=== PATIENT | female | born 1950 | race Caucasian/White ===

== ENCOUNTER → 2018-07-23 | Day surgery (SDC) | payer OTHER ==
--- NOTE | 2018-07-23 18:31 | OP ---
DATE OF OPERATION: 07/23/2018 PREOPERATIVE DIAGNOSIS: Right breast mass, 12 o'clock, retroareolar. POSTOPERATIVE DIAGNOSIS: Right breast mass, 12 o'clock, retroareolar. PROCEDURE: Right ultrasound-guided core biopsy with clip placement. ANESTHESIA: Local. ATTENDING SURGEON: Juan Diego Obregon MD ESTIMATED BLOOD LOSS: Minimal. COMPLICATIONS: None. PROCEDURE: Patient was made aware of the risks and benefits of the procedure and consented. She was then placed in a supine position, and under sterile conditions with 1% lidocaine for local anesthesia, a small ellen was made in the skin. Using a 13-gauge suction biopsy device with a lateral approach under ultrasound guidance, multiple cores were obtained and submitted to Pathology. Likewise, under ultrasound guidance, a U-shape clip was placed into the biopsy region. Well tolerated by the patient. Steri-Strips and a sterile bandage were applied. We will contact her with the results. JUAN DIEGO OBREGON M.D. [id number]
--- NOTE | 2018-07-24 16:45 | PATH ---
Surgical Pathology Report Patient Name: DALI ARIAS [facility]. Rec. #: [id number] /Age/Gender: 1950 (Age: 67) / F Account: [id number] Location: [facility] Taken: 07/23/2018 Received: 07/23/2018 Reported: 07/24/2018 Physicians: Juan Diego Obregon M.D. Specimen(s) Received RIGHT BREAST CORE BIOPSY Clinical History Nonpalpable lesion Mammographic findings/ultrasound findings: Highly suspicious/malignant Final Diagnosis BREAST, RIGHT, 12:00, RETRO, CORE BIOPSY: INVASIVE DUCTAL CARCINOMA, MODERATELY DIFFERENTIATED, MEASURING AT LEAST 1 CM IN THIS MATERIAL. Comment: Immunohistochemical stains performed and interpreted at [facility] show the tumor is positive for E-Cadherin, supportive of ductal phenotype. Results of Estrogen Receptor (ER) and Progesterone Receptor (VA) studies performed on block "1" at [facility] are as follows: ER (clone [id number] mouse monoclonal antibody by [employer]): >95% nuclear staining with strong intensity (Positive). VA (clone16 mouse monoclonal antibody by Leica): 0% nuclear staining (Negative). HER2 (IHC) AND KI67 studies are pending, and will be reported separately. Positive and negative controls (internal if applicable) show appropriate results. Formalin fixation and cold ischemic times are within current ASCO/CAP recommendations for ER, VA and Her2 testing. Electronically Signed Tracy Mott M.D. Addendum Reported: 07/25/2018 Addendum Diagnosis Results of Her2 (IHC) & Ki-67 studies performed at [place], [place] ([id number]) are as follows: Her2 IHC (EP3 from [employer], formerly known as [id number], using Estes Polymer Refine detection kit): 0 (Negative). Ki-67: ~25% (Intermediate proliferative index). Positive and negative controls (internal if applicable) show appropriate results. Tracy Mott M.D. Gross Description Received in formalin labeled "right 12:00 retro," are 6 bennett-yellow, cylindrical portions of fibroadipose tissue ranging from 1.0-1.6 cm in length and averaging 0.1 cm in diameter. The specimens are submitted in toto in one cassette. Time to formalin fixation: Less than one minute Total formalin fixation time: Approximately 6 hours. 07/23/201807/23/2018
== END | disposition home or self-care (01) ==
LOC: FRADUS-SUR 11:23
PROVIDERS: ATTEND Surgery Surgical Oncology
PROC: 0HBT3ZX Excision of Right Breast, Percutaneous Approach, Diagnostic (ICD-10-PCS; principal; 2018-07-23)
DX: C50.811 Malignant neoplasm of overlapping sites of right female breast (principal); Z17.0 Estrogen receptor positive status [ER+]; N63.10 Unspecified lump in the right breast, unspecified quadrant
CPT/HCPCS: 19083; 87899; 88305-TC; 88342-TC; A4648

== ENCOUNTER 2018-08-13 11:32 | Inpatient (IN) | payer OTHER ==
[2018-07-29 11:36] VITALS: BMI 25.7
--- NOTE | 2018-08-01 11:37 | HP ---
Admitting History and Physical - Primary Care Physician PCP: Juan Diego Obregon - Admission Chief Complaint: right breast cancer History of Present Illness: Patient is a 67 yo female with h/o left MRM at 36 yrs old, who was noted to have a right breast mass on self exam. The mammo and US confirmed this subareolar mass at 12 as well as an additional second nodule at 10 9-10 cm FN. Patient underwent a right 12 o'clock core bx on 07/23/2018 which was c/w invasive ductal carcinoma ER pos, AL negative. Patient has opted to have a mastectomy, snbx, poss andx with lympho without reconstruction. History Source: Patient - Past Medical History Cardiovascular: Yes: HTN Heme/Onc: Yes: Cancer (breast cancer at 36 yo) ENT: Yes: Other (allergies to foods banana and avacado) - Past Surgical History Past Surgical History: Yes: (x3), Hysterectomy (SHREE BSO benign at age 37), Mastectomy (left MRM at 36) - Advance Directives Advance Directives: Yes: Health Care Proxy - Smoking History Smoking history: Former smoker Have you smoked in the past 12 months: No If you are a former smoker, when did you quit?: 20 yrs ago - Alcohol/Substance Use Hx Alcohol Use: Yes (7 per week) Home Medications - Allergies Allergies/Adverse Reactions: Allergies Allergy/AdvReac Type Severity Reaction Status Date / Time banana Allergy Verified 07/24/18 15:35 Iodine and Iodide Containing Allergy Verified 07/24/18 15:35 Produc Latex, Natural Rubber Allergy Verified 07/24/18 15:35 adhesive tape Allergy Uncoded 07/29/18 11:25 - Home Medications Home Medications: Ambulatory Orders Hydrochlorothiazide [Hctz -] 50 mg PO DAILY 07/29/18 Loratadine [Claritin] 10 mg PO HS 07/29/18 Triamcinolone Acetonide [Nasacort] 10.8 ml NS DAILY 07/29/18 Family Disease History - Family Disease History Family Disease History: CA: Daughter (leukemia at age 3 currently 36) Review of Systems - Review of Systems Constitutional: reports: No Symptoms Physical Examination Constitutional: Yes: Well Nourished, Calm Cardiovascular: Yes: Regular Rate and Rhythm Respiratory: Yes: CTA Bilaterally Breast(s): Yes: Other (Breasts are symmetrical without skin changes noted. Right palpable subareolar mass noted approx 2 cm with slight nipple retraction. No other suspicious masses or adenopathy was noted bilaterally.) Problem List - Problems (1) Breast cancer, right Code(s): C50.911 - MALIGNANT NEOPLASM OF UNSP SITE OF RIGHT FEMALE BREAST Qualifiers: Breast location: central portion of breast Estrogen receptor status: positive Patient sex: female Qualified Code(s): C50.111 - Malignant neoplasm of central portion of right female breast; Z17.0 - Estrogen receptor positive status [ER+] (2) History of left breast cancer Code(s): Z85.3 - PERSONAL HISTORY OF MALIGNANT NEOPLASM OF BREAST Assessment/Plan Plan: Right mastectomy, sentinel node bx, possible andx with lymphoscintogram
[2018-08-13] MEDS ORDERED: ISOSULFAN BLUE 10 MG/ML VIAL SQ ONE (12:46)
[2018-08-13] MEDS ORDERED: BUPIVACAINE HCL/PF 2.5 MG/ML - 30 ML VIAL IJ ONE (12:46)
[2018-08-13] MEDS ORDERED: LIDOCAINE HCL 1%, 10 MG/ML (20ML VIAL) ONE (12:47)
[2018-08-13] MEDS ORDERED: LIDOCAINE HCL/PF 2% SDV 5ML VIAL ONE (13:41)
[2018-08-13] MEDS ORDERED: DEXAMETHASONE SOD PHOSPHATE 4 MG/1 ML VIAL ONE (13:41)
[2018-08-13] MEDS ORDERED: ONDANSETRON 4 MG/2 ML VIAL ONE (13:41)
[2018-08-13] MEDS ORDERED: ceFAZolin SODIUM 1 GM VIAL ONE (13:48)
[2018-08-13] MEDS ORDERED: PROPOFOL 20 ML ONE (14:00)
[2018-08-13] MEDS ORDERED: PHENYLEPHRINE HCL 10 MG/1 ML SINGLE DOSE VIAL ONE (14:01)
[2018-08-13] MEDS ORDERED: ONDANSETRON 4 MG/2 ML VIAL IVPUSH PRN ×2 (14:53→16:26)
[2018-08-13] MEDS ORDERED: traMADol HCL 50 MG TABLET PO PRN (14:54)
[2018-08-13] MEDS ORDERED: oxyCODONE HCL 5 MG TABLET PO PRN (14:55)
[2018-08-13] MEDS ORDERED: LACTATED RINGERS SOLUTION 1,000 ML IV SCH (15:00)
[2018-08-13] MEDS ORDERED: ZOLPIDEM TARTRATE 5 MG TABLET PO PRN (16:26)
[2018-08-13] MEDS ORDERED: ACETAMINOPHEN 325 MG TABLET (FP) PO PRN (16:26)
[2018-08-13] MEDS ORDERED: PROMETHAZINE HCL 25 MG/1 ML VIAL ONE (16:50)
[2018-08-13] MEDS ORDERED: traMADol HCL 50 MG TABLET ONE (16:59)
[2018-08-13] MEDS ORDERED: ACETAMINOPHEN 325 MG TABLET (FP) ONE (16:59)
[2018-08-13] MEDS: ACETAMINOPHEN 325 MG TABLET (FP) PO SCH ×3 (18:00→23:50)
--- NOTE | 2018-08-13 21:18 | OP ---
DATE OF OPERATION: 08/13/2018 PREOPERATIVE DIAGNOSES: Right breast cancer, redundant left chest wall tissue status post mastectomy, and BRCA2 positive. POSTOPERATIVE DIAGNOSES: Right breast cancer, redundant left chest wall tissue status post mastectomy, and BRCA2 positive. PROCEDURE: Right total mastectomy with sentinel node biopsy, no reconstruction, and left chest wall excision of redundant tissue. ANESTHESIA: General, intubated. ATTENDING SURGEON: Sharonda Obregon MD ASSISTANT MEN'S SOCCER COACH: KAILASH Jacobs ESTIMATED BLOOD LOSS: 150 mL. COMPLICATIONS: None. PROCEDURE: Patient was made aware of the risks and benefits of the procedure and consented. Preoperatively she went to Nuclear Medicine, where a nuclear radioactive tracer was injected into the right breast. She was then placed in a supine position on the operating room table, and after general anesthesia was induced, the patient was intubated. Then 3 mL of 1% isosulfan blue were locally infiltrated into the right breast subareolar tissue. The operative site was prepped and draped in the usual sterile fashion. A curvilinear incision was made in the right axilla using blunt and sharp dissection. Tissues were dissected down to the axillary fat, where a cluster of 2 blue and hot lymph nodes were identified. These were surgically excised and submitted to Pathology. Interrogation of the rest of the axilla with the NeoProbe, we found no hot spots and, by palpation, no suspicious lymph nodes. The tissue was then submitted for frozen section, which was reported as no evidence of metastasis. The right breast was then approached. An elliptical incision was made around the nipple and bulk of the skin. Using electrocautery, skin flaps were made superior to the clavicle, medial to the sternum, lateral to the latissimus dorsi, and inferior to the inframammary fold. Using electrocautery, the breast tissue was taken off the pectoralis muscle, extending to the latissimus dorsi. This was then submitted with a short suture superior, long suture lateral. Specimen radiograph confirmed the presence of the indexed lesion. The wound was copiously irrigated with normal saline, hemostasis maintained by electrocautery. A 15-Maori drain was placed through inferior stab wound and sutured to the skin with 3-0 nylon. Skin was then closed with deep interrupted 2-0 and 3-0 Vicryl followed by running subcuticular 4-0 Monocryl. Using separate instruments, gowns and gloves, the left side was then approached. An elliptical incision was made over the prior incision using electrocautery. Thick skin flaps were made to encompass all of the breast tissue. This was then taken off the pectoralis muscle laterally to the anterior axillary line. This was then submitted with a short suture superior, long suture lateral. The wound was copiously irrigated with normal saline, hemostasis maintained with electrocautery. The wound was then closed with 2-0 and 3-0 Vicryl interrupted sutures followed by running subcuticular 4-0 Monocryl. Through an inferior stab wound, a 15-Maori drain was also placed into the cavity and sutured to the skin with 3-0 nylon. Dermabond was used on both incisions. The wounds were then dressed with sterile dressings as well as a compression bra and the patient, having tolerated the procedure well, was transferred to the recovery room in excellent condition. SHARONDA OBREGON M.D. [id number]
[2018-08-13] MEDS: CEFAZOLIN 1 GM/D5W 1 GM/50 ML BAG IVPB SCH (21:25)
[2018-08-13] MEDS ORDERED: LORATADINE 10 MG TABLET PO SCH (22:00)
[2018-08-14] MEDS: CEFAZOLIN 1 GM/D5W 1 GM/50 ML BAG IVPB SCH ×3 (03:21→15:57)
[2018-08-14] MEDS: ACETAMINOPHEN 325 MG TABLET (FP) PO SCH ×4 (03:50→15:56)
[2018-08-14] MEDS: DEXTROSE 5%-0.45% SALINE 1,000 ML IV SCH ×2 (08:05→18:01)
[2018-08-14 08:18] LABS: HEMATOCRIT 32.3 % (32.4-45.2); HEMOGLOBIN 10.8 GM/dl (10.7-15.3); MCH 30.7 pg (25.7-33.7); MCHC 33.3 g/dl (32.0-36.0); MEAN CELL VOLUME 92.2 fl (80-96); MEAN PLT VOLUME 10.8 fl (7.5-11.1); PLATELET COUNT 162 K/MM3 (134-434); RDW 12.6 % (11.6-15.6); WHITE BLOOD COUNT 8.4 K/mm3 (4.0-10.8)
[2018-08-14] MEDS ORDERED: PT OWN MED DRAWER 7, Y5N ONE (09:06)
--- NOTE | 2018-08-14 09:20 | PN ---
Progress Note, Physician Chief Complaint: POD#1 S/P right mastectomy with snbx and revision of left chest incision History of Present Illness: Patient was seen today at the bedside and reports good pain control with tylenol. Other then some right inner upper arm numbness, patient is comfortable. - Current Medication List Current Medications: Active Medications Acetaminophen (Tylenol -) 650 mg PO Q4H [facility] Last Admin: 08/14/18 08:33 Dose: Not Given Acetaminophen (Tylenol -) 650 mg PO Q4H PRN PRN Reason: FEVER Fluticasone Propionate (Flonase -) 1 spray NS DAILY [facility] Heparin Sodium (Porcine) (Heparin -) 5,000 unit SQ BID [facility] Hydrochlorothiazide (Hctz -) 50 mg PO DAILY [facility] Cefazolin Sodium (Ancef 1 Gm Premixed Ivpb -) 1 gm in 50 mls @ 100 mls/hr IVPB Q6H-IV [facility] Stop: 08/20/18 20:59 Last Admin: 08/14/18 08:32 Dose: 100 mls/hr Dextrose/Sodium Chloride (D5-1/2ns -) 1,000 mls @ 100 mls/hr IV ASDIR [facility] Last Admin: 08/14/18 08:05 Dose: Not Given Loratadine (Claritin -) 10 mg PO HS [facility] Last Admin: 08/13/18 21:25 Dose: 10 mg Ondansetron HCl (Zofran Injection) 4 mg IVPUSH Q6H PRN PRN Reason: NAUSEA AND/OR VOMITING Last Admin: 08/13/18 21:28 Dose: 4 mg Oxycodone HCl (Roxicodone -) 5 mg PO Q4H PRN PRN Reason: PAIN LEVEL 6-10 Tramadol HCl (Ultram -) 50 mg PO Q4H PRN PRN Reason: PAIN LEVEL 4 - 6 Last Admin: 08/13/18 18:00 Dose: 50 mg Zolpidem Tartrate (Ambien -) 5 mg PO HS PRN PRN Reason: Insomnia - Objective Vital Signs: Vital Signs Temperature 98.3 F 08/14/18 03:47 Pulse Rate 89 08/14/18 03:47 Respiratory Rate 18 08/14/18 03:47 Blood Pressure 113/55 L 08/14/18 03:47 O2 Sat by Pulse Oximetry (%) 94 L 08/14/18 08:21 Constitutional: Yes: Well Nourished, Calm Breast(s): Yes: Other (Right more than left ecchymosis noted on the flaps. Incision without discharge noted or erythema. Some leakage noted around the right WIL although bulb maintains suction. Serosanginous discharge noted bilaterally) Labs: CBC, BMP 08/14/18 07:52 Problem List - Problems (1) Breast cancer, right Code(s): C50.911 - MALIGNANT NEOPLASM OF UNSP SITE OF RIGHT FEMALE BREAST Qualifiers: Breast location: central portion of breast Estrogen receptor status: positive Patient sex: female Qualified Code(s): C50.111 - Malignant neoplasm of central portion of right female breast; Z17.0 - Estrogen receptor positive status [ER+] (2) History of left breast cancer Code(s): Z85.3 - PERSONAL HISTORY OF MALIGNANT NEOPLASM OF BREAST Assessment/Plan A: S/P Right mastectomy with snbx and revision of left chest incision P: Discharge today and followup in the office next week Continue po axbx and pain meds as needed Record WIL output
[2018-08-14] MEDS ORDERED: FLUTICASONE PROP 0.05% 16 GM NASAL SPRAY NS SCH (10:00)
[2018-08-14] MEDS ORDERED: HEPARIN NA (PORCINE) 5,000 UNITS/ML 1ML VIAL SQ SCH (10:00)
[2018-08-14] MEDS ORDERED: HYDROCHLOROTHIAZIDE 50 MG TABLET PO SCH (10:00)
--- NOTE | 2018-08-14 13:27 | PN ---
Progress Note (short form) - Note Progress Note: ANESTHESIOLOGY POST-OP CHECK 67F s/p right mastectomy under general anesthesia , POD #1. no acute complaints. Pain 2/10 and tolerable. Ambulating, tolerating PO, denies N/V. Vital Signs Temperature 98.3 F 08/14/18 03:47 Pulse Rate 89 08/14/18 03:47 Respiratory Rate 18 08/14/18 03:47 Blood Pressure 113/55 L 08/14/18 03:47 O2 Sat by Pulse Oximetry (%) 94 L 08/14/18 08:21 Active Medications Acetaminophen (Tylenol -) 650 mg PO Q4H [facility] Last Admin: 08/14/18 11:54 Dose: 650 mg Acetaminophen (Tylenol -) 650 mg PO Q4H PRN PRN Reason: FEVER Fluticasone Propionate (Flonase -) 1 spray NS DAILY [facility] Last Admin: 08/14/18 09:18 Dose: 1 spray Heparin Sodium (Porcine) (Heparin -) 5,000 unit SQ BID [facility] Last Admin: 08/14/18 09:23 Dose: 5,000 unit Hydrochlorothiazide (Hctz -) 50 mg PO DAILY [facility] Last Admin: 08/14/18 09:24 Dose: Not Given Cefazolin Sodium (Ancef 1 Gm Premixed Ivpb -) 1 gm in 50 mls @ 100 mls/hr IVPB Q6H-IV [facility] Stop: 08/20/18 20:59 Last Admin: 08/14/18 08:32 Dose: 100 mls/hr Dextrose/Sodium Chloride (D5-1/2ns -) 1,000 mls @ 100 mls/hr IV ASDIR [facility] Last Admin: 08/14/18 08:05 Dose: Not Given Loratadine (Claritin -) 10 mg PO HS [facility] Last Admin: 08/13/18 21:25 Dose: 10 mg Ondansetron HCl (Zofran Injection) 4 mg IVPUSH Q6H PRN PRN Reason: NAUSEA AND/OR VOMITING Last Admin: 08/13/18 21:28 Dose: 4 mg Oxycodone HCl (Roxicodone -) 5 mg PO Q4H PRN PRN Reason: PAIN LEVEL 6-10 Tramadol HCl (Ultram -) 50 mg PO Q4H PRN PRN Reason: PAIN LEVEL 4 - 6 Last Admin: 08/13/18 18:00 Dose: 50 mg Zolpidem Tartrate (Ambien -) 5 mg PO HS PRN PRN Reason: Insomnia Gen; awake, alert, NAD No apparent anesthesia complications, pain well controlled. Continue management as per primary team.
[2018-08-14 14:14] VITALS: BP 137/68; PULSE 94; TEMP 98.4
--- NOTE | 2018-08-19 10:30 | PATH ---
Surgical Pathology Report Patient Name: DALI ARIAS Med. Rec. #: [id number] /Age/Gender: 1950 (Age: 67) / F Account: [id number] Location: [facility] Taken: 08/13/2018 Received: 08/13/2018 Reported: 08/19/2018 Physicians: Juan Diego Obregon M.D. Specimen(s) Received A: RIGHT AXILLARY SENTINEL NODES (FS) B: RIGHT BREAST MASTECTOMY C: LEFT BREAST TISSUE Clinical History Invasive Ca, tumor/biopsy site at 12:00 Intraoperative Consult Diagnosis Right axillary sentinel nodes, frozen section: Two negative lymph nodes. Ray Cooper M.D., 08/13/2018 Final Diagnosis A. LYMPH NODES, RIGHT AXILLARY SENTINEL, EXCISION (FS): TWO LYMPH NODES, NEGATIVE FOR METASTATIC CARCINOMA (0/2). B. BREAST, RIGHT, TOTAL MASTECTOMY: INVASIVE DUCTAL CARCINOMA, MODERATELY DIFFERENTIATED WITH MICROPAPILLARY FEATURES (TUBULE SCORE: 3/3, NUCLEAR GRADE: 2/3, MITOTIC SCORE: 2/3, TOTAL SCORE: 7/9; STEVEN GRADE 2), MEASURING 1.9 CM IN GREATEST DIMENSION, MICROSCOPICALLY. (SEE NOTE) FOCAL DUCTAL CARCINOMA IN SITU (DCIS), SOLID TYPE, INTERMEDIATE NUCLEAR GRADE, PRESENT ADMIXED WITH INVASIVE CARCINOMA. SURGICAL MARGINS ARE UNINVOLVED BY CARCINOMA; CARCINOMA IS AT 4.5 CM FROM THE DEEP MARGIN (GROSS MEASUREMENT). NIPPLE AND SKIN ARE UNINVOLVED BY CARCINOMA. NO LYMPHOVASCULAR INVASION IS IDENTIFIED. (SEE NOTE). SMALL FIBROADENOMA. SKIN SHOWING SEBORRHEIC KERATOSIS. PRIOR BIOPSY SITE CHANGES ARE PRESENT. PATHOLOGIC STAGE (pTNM): pT1c pN0. SEE ALSO INVASIVE CARCINOMA CASE SUMMARY BELOW. Note: Immunostains performed on block B7 at [place], [place] ([id number]) show the following results: VENUS shows characteristic linear VENUS reactivity at the outer surface of the subset of tumor cells showing micropapillary architecture, which supports micropapillary component. Endothelial immunohistochemical markers (CD31 & Factor VIII) were used in the evaluation of this case and demonstrate no evidence of lymphovascular invasion. C. BREAST, TISSUE, LEFT, EXCISION: BENIGN BREAST TISSUE AND SCANT SKELETAL MUSCLE. SKIN, WITH NO PATHOLOGIC FINDINGS. Comments Breast Invasive Carcinoma: Surgical Pathology Case Summary (Based on AJCC TNM 8 th edition) Procedure _X_ Total mastectomy Specimen Laterality _X_ Right Tumor Size _X_ Greatest dimension of largest invasive focus (millimeters): 19 mm Histologic Type _X_ Invasive carcinoma with micropapillary features Histologic Grade (Brock Histologic Score) Glandular (Acinar)/Tubular Differentiation _X_ Score 3 (<10% of tumor area forming glandular/tubular structures) Nuclear Pleomorphism _X_ Score 2 Mitotic Rate _X_ Score 2 Overall Grade _X_ Grade 2 (scores of 6 or 7) Tumor Focality _X_ Single focus of invasive carcinoma Ductal Carcinoma In Situ (DCIS) _X_ DCIS is present in specimen _X_ Negative for extensive intraductal component (EIC) Margins Invasive Carcinoma Margins _X_ Uninvolved by invasive carcinoma Distance from closest margin (millimeters): 45 mm (gross measurement) DCIS Margins _X_ Uninvolved by DCIS Distance from closest margin (millimeters): 45 mm from deep margin (focal DCIS is present admixed with invasive carcinoma, which is grossly at 45 mm from the deep margin) Regional Lymph Nodes Number of Lymph Nodes with Macrometastases (>2 mm): 0 Number of Lymph Nodes with Micrometastases (>0.2 mm to 2 mm and/or >200 cells): 0 Number of Lymph Nodes with Isolated Tumor Cells (=0.2 mm and =200 cells): 0 Number of Lymph Nodes Examined: 2 Number of [place] Nodes Examined : 2 Treatment Effect _X__ No known presurgical therapy Lymphovascular Invasion _X_ Not identified Pathologic Stage Classification (pTNM, AJCC 8th Edition) Primary Tumor (Invasive Carcinoma) (pT) _X_ pT1c: Tumor >10 mm but =20 mm in greatest dimension Regional Lymph Nodes (pN) Category (pN) _X_ pN0: No regional lymph node metastasis identified or ITCs only Biomarker Studies Results of ER and MT studies performed on prior biopsy ([id number]) at [facility] are as follows: ER (clone [id number] mouse monoclonal antibody by [employer]) : >95 % nuclear staining with strong intensity (Positive). MT (clone16 mouse monoclonal antibody by [employer]): 0 % nuclear staining (Negative). Results of Her2 (IHC) & Ki-67 studies performed on prior biopsy ([id number]) at [place], [place] [id number]) are as follows: Her2 IHC (EP3 from [employer], formerly known as [id number], using Estes Polymer Refine detection kit): 0 (Negative). Ki67: ~25% (Intermediate proliferative index). Electronically Signed Imelda Cooper M.D. Gross Description A. Received fresh labeled "right axillary sentinel nodes," are 2 lymph nodes with attached fatty tissue measuring 2.2 x 1.0 x 0.4 cm and 0.5 x 0.4 x 0.2 cm. The larger lymph node is bisected and frozen section is performed on the lymph nodes. The frozen section residue is entirely submitted in 2 cassettes as follows: 1-bisected larger lymph node; 2-smaller whole lymph nodes. B. Received in formalin, labeled "right breast mastectomy," is a 1350 gram, 23.0 x 18.5 x 7.0 cm. right mastectomy specimen with a short suture marking the superior aspect and a long suture marking the lateral aspect of the specimen, per the surgeon. The anterior surface displays a 21.0 x 13.5 cm bennett, elliptical portion of skin with a 1.0 cm in diameter nipple. There is also a 2.5 x 2.0 cm bennett, raised skin lesion at 2.2 cm from the inferior (7:00) radial skin margin. The deep margin is inked black and the anterior soft tissue margin is inked blue. The specimen is serially sectioned from lateral to medial. Sectioning reveals a 1.7 x 1.6 x 1.4 cm bennett, firm mass in the upper outer quadrant (UOQ), 2 cm from the skin. The mass is at 4.5 cm from the deep margin. The remaining breast parenchyma displays foci of white fibrous tissue. Medical Administrative sections are submitted in 17 cassettes as follows: 1-serially sectioned nipple; 2-subareolar shave; 3-4-skin lesion; 5-full-face section of mass; 8-9-wyzvmuxzso mass; 8-uninvolved UOQ tissue; 9-10-lower outer quadrant; 11-12-upper inner quadrant; 13-14-lower inner quadrant; 15-anterior soft tissue margin; 16-skin; 17-deep margin. Time to formalin fixation: 57 minutes Total formalin fixation time: Approximately 27 hours. C. Received in formalin labeled "left breast tissue," is a 235 g, 15.0 x 11.0 x 2.0 cm portion of fibroadipose tissue which is surfaced by a 9.5 x 3.0 cm bennett, elliptical, unremarkable portion of skin. The deep margin is inked black and the anterior soft tissue margin is inked blue. The specimen is serially sectioned from medial to lateral. Sectioning reveals unremarkable fibrous tissue. Medical Administrative sections are submitted in 9 cassettes as follows: 1-upper outer quadrant; 2-3-lower outer quadrant; 4-5-upper inner quadrant; 6-7-lower inner quadrant; 8-skin and anterior soft tissue margin; 9-deep margin. 08/14/2018 [facility]08/14/2018
== END 2018-08-14 18:21 | disposition home or self-care (01) | DRG 581 ==
LOC: FASU 11:32 → FM/S 16:26 → FASU 18:47 → FM/S 18:47
PROVIDERS: ADMIT Surgery Surgical Oncology; ATTEND Surgery Surgical Oncology
PROC: 0HB5XZZ Excision of Chest Skin, External Approach (ICD-10-PCS; 2018-08-13)
PROC: 0HTT0ZZ Resection of Right Breast, Open Approach (ICD-10-PCS; principal; 2018-08-13 13:00)
PROC: 07B80ZX Excision of Right Internal Mammary Lymphatic, Open Approach, Diagnostic (ICD-10-PCS; 2018-08-13 13:00)
DX: C50.811 Malignant neoplasm of overlapping sites of right female breast (principal); Z17.0 Estrogen receptor positive status [ER+]; Z90.710 Acquired absence of both cervix and uterus; Z87.891 Personal history of nicotine dependence; Z90.12 Acquired absence of left breast and nipple
CPT/HCPCS: 36415; 78195-TC; 85027; 88305-TC; 88307-TC; 88331-TC; 88332; 94760; A9541; J1644